=== PATIENT | female | born 1990 | race Caucasian/White ===

== ENCOUNTER 2024-01-16 13:27 | Outpatient (CLI) | payer BC | END 2024-01-16 13:28 | disposition home or self-care (01) | LOC: CSHRAD 13:27 | PROVIDERS: ATTEND Physician Assistant Surgical | DX: M47.26 Other spondylosis with radiculopathy, lumbar region (principal); M47.27 Other spondylosis with radiculopathy, lumbosacral region | CPT/HCPCS: 72110 ==

== ENCOUNTER 2025-05-15 14:26 | Outpatient (CLI) | payer BC | END 2025-05-15 14:27 | disposition home or self-care (01) | LOC: CSHDTY/OP 14:26 | PROVIDERS: ATTEND Nurse Practitioner Family | DX: Z71.3 Dietary counseling and surveillance (principal) | CPT/HCPCS: 97802 ==